=== PATIENT | female | born 1950 | race Caucasian/White ===

== ENCOUNTER 2016-09-23 14:46 | Emergency (ER) | payer MEDICARE, OTHER ==
[~2016-09-23] VITALS: Ht 160 cm; Wt 68.2 kg
[~2016-09-23 14:46] MED LIST: CYMBALTA30 MG PO; DAKIN'S 0.500 ML/1 B MC; DESYREL 50MG50 MG PO; DITROPAN XL10 MG PO; DOXYCYCLINE 10100 MG PO; FLEXERIL 1010 MG/TAB PO; LEVAQUIN 5500 MG/TA1 PO; LYRICA 100MG C100 M1 PO; LYRICA50 MG PO; MELOXICAM15 MG PO; NORCO 325 MG-51 TAB PO; OXYCONTIN 10MG10 MG PO; PREDNISONE20 MG PO; PRILOSEC 20MG20 MG PO; SAVELLA50 MG PO; TIZANIDINE4 MG PO; XANAX1 MG PO
[2016-09-23 14:48] VITALS: BP 147/71; TEMP 98.2
[2016-09-23] MEDS ORDERED: FLEXERIL 1010 MG/TAB PO ×2 (14:54→17:06)
[2016-09-23] MEDS ORDERED: NORCO 325 MG-51 TAB PO (17:06)
[2016-09-23 17:19] VITALS: PULSE 75
== END 2016-09-23 17:19 | disposition home or self-care (01) ==
LOC: COL.ER 14:46
DX: M54.6 Pain in thoracic spine (principal)
CPT/HCPCS: J1885; J2360

== ENCOUNTER 2016-10-28 20:18 | Emergency (ER) | payer MEDICARE, OTHER ==
[~2016-10-28] VITALS: Ht 160 cm; Wt 70.5 kg
[2016-10-28 20:21] VITALS: TEMP 99.1
[2016-10-28 21:23] LABS: BASO # 0.1 (0.0-0.2); BASO % 0.7 % (0.0-2.0); EOS % 0.1 % (0-4.0); GRAN % 67.9 % (42.2-75.2); LYMPH # 1.5 (1.2-3.4); LYMPH % 20.4 % (20.0-51.0); MEAN CELL VOLUME 91 fl (80.0-100.0); MEAN CORPUSCULAR HEMOGLOBIN 33 pg (27.0-31.0); MEAN CORPUSCULAR HGB CONC 36 g/dl (33.0-37.0); MONO # 0.8 (0.1-0.6); MONO % 10.6 % (1.7-9.3); PLATELET COUNT 251 K/mm3 (130-400); RED BLOOD COUNT 3.97 M/mm3 (4.10-5.30); REDCELL DISTRIBUTION WIDTH-CV 11.9 % (11.5-14.5); WHITE BLOOD COUNT 7.3 K/mm3 (4.8-10.8)
[2016-10-28 21:25] LABS: HEMATOCRIT 36.3 % (37.0-47.0)
[2016-10-28] MEDS ORDERED: XOPENEX 0.0.63 MG/3 IH (21:31)
[2016-10-28] MEDS ORDERED: PRILOSEC 20MG20 MG PO (21:32)
[2016-10-28] MEDS ORDERED: NORCO 325 MG-51 TAB PO (21:33)
[2016-10-28] MEDS ORDERED: SUDAFED 24-HOU240 MG PO (21:33)
[2016-10-28 21:36] LABS: CALCIUM 9.9 mg/dL (8.4-10.2); CREATININE, serum 0.8 mg/dL (0.52-1.25); POTASSIUM 3.7 mmol/L (3.4-5.0)
[2016-10-28 21:40] LABS: INFLUENZA B NEGATIVE
[2016-10-28 22:00] VITALS: BP 117/79
[2016-10-28 22:30] VITALS: PULSE 91
== END 2016-10-28 22:47 | disposition home or self-care (01) ==
LOC: COL.ER 20:18
PROVIDERS: Emergency Medicine
DX: J06.9 Acute upper respiratory infection, unspecified (principal); J30.9 Allergic rhinitis, unspecified; J90 Pleural effusion, not elsewhere classified
CPT/HCPCS: J1200; J7030

== ENCOUNTER 2017-02-02 15:03 | Emergency (ER) | payer MEDICARE, OTHER ==
[~2017-02-02] VITALS: Ht 312.4 cm; Wt 71.4 kg
[~2017-02-02 15:03] MED LIST changes: +SUDAFED 24-HOU240 MG PO; +XOPENEX 0.0.63 MG/3 IH
[2017-02-02 15:12] VITALS: BP 150/63; TEMP 98.4
[2017-02-02 17:24] VITALS: PULSE 72
== END 2017-02-02 17:25 | disposition home or self-care (01) ==
LOC: COL.ER 15:03
DX: M25.561 Pain in right knee (principal)

== ENCOUNTER 2017-07-17 12:33 | Emergency (ER) | payer MEDICARE, OTHER ==
[~2017-07-17] VITALS: Ht 160 cm; Wt 72.7 kg
[2017-07-17 12:37] VITALS: TEMP 99.6
[2017-07-17 14:44] LABS: COLLECTION METHOD CLEAN CATCH
[2017-07-17 14:58] LABS: MUCOUS Present /lpf; PH 8 (5-8); SQUAMOUS EPITHELIAL 0-2 /hpf; URINE APPEARANCE Clear; URINE BACTERIA Rare /hpf; URINE BILIRUBIN Negative (NEGATIVE); URINE BLOOD Negative (NEGATIVE); URINE COLOR Straw; URINE GLUCOSE Negative (NEGATIVE); URINE KETONE Trace (NEGATIVE); URINE LEUKOCYTE ESTERASE Trace (NEGATIVE); URINE NITRATE Negative (NEGATIVE); URINE PROTEIN(semi-quant) Negative (NEGATIVE); URINE RBC 0-2 /hpf; URINE UROBILINOGEN Negative (NEGATIVE)
[2017-07-17 14:58] LABS: BASO # 0.1 (0.0-0.2); BASO % 0.7 % (0.0-2.0); EOS % 0.4 % (0-4.0); GRAN % 55.8 % (42.2-75.2); HEMATOCRIT 40.6 % (37.0-47.0); HEMOGLOBIN 14.1 g/dl (12.5-16.0); LYMPH # 2.6 (1.2-3.4); LYMPH % 36.6 % (20.0-51.0); MEAN CELL VOLUME 94 fl (80.0-100.0); MEAN CORPUSCULAR HEMOGLOBIN 33 pg (27.0-31.0); MEAN CORPUSCULAR HGB CONC 35 g/dl (33.0-37.0); MEAN PLATELET VOLUME 9.4 fl (7.4-10.4); MONO # 0.5 (0.1-0.6); MONO % 6.4 % (1.7-9.3); PLATELET COUNT 283 K/mm3 (130-400); RED BLOOD COUNT 4.31 M/mm3 (4.10-5.30); REDCELL DISTRIBUTION WIDTH-CV 11.4 % (11.5-14.5)
[2017-07-17 15:10] LABS: ALANINE AMINOTRANSFERASE 27 U/L (9-52); ALBUMIN 4.5 gm/dL (3.5-5.0); ALKALINE PHOSPHATASE 103 U/L (50-136); ANION GAP 12 mmol/L (7-16); AST,SGOT 23 U/L (15-37); BILIRUBIN,TOTAL 0.8 mg/dL (0.0-1.0); BLOOD UREA NITROGEN 13 mg/dL (7-17); C-REACTIVE PROTEIN < 0.5 mg/dL (0.0-0.9); CALCIUM 10.2 mg/dL (8.4-10.2); CARBON DIOXIDE 24 mmol/L (22-30); CHLORIDE 99 mmol/L (98-107); CREATININE, serum 0.92 mg/dL (0.52-1.25); GLUCOSE 103 mg/dL (74-106); POTASSIUM 3.4 mmol/L (3.4-5.0); SODIUM 134 mmol/L (137-145); TOTAL PROTEIN 7.5 gm/dL (6.4-8.2)
[2017-07-17 15:17] LABS: INFLUENZA A NEGATIVE; INFLUENZA B NEGATIVE
[2017-07-17] MEDS ORDERED: LEVAQUIN 5500 MG/TA1 PO (15:35)
[2017-07-17] MEDS ORDERED: ZITHROMAX Z PA250 MG PO (16:04)
[2017-07-17 16:22] VITALS: BP 141/81; PULSE 96
== END 2017-07-17 16:21 | disposition home or self-care (01) ==
LOC: COL.ER 12:33
PROVIDERS: Family Medicine
DX: R06.02 Shortness of breath (principal); K21.9 Gastro-esophageal reflux disease without esophagitis
CPT/HCPCS: J2060; J7030

== ENCOUNTER → 2018-05-12 | Outpatient (CLI) | payer MEDICARE, OTHER, BC ==
[~2018-05-12] MED LIST changes: +ZITHROMAX Z PA250 MG PO
== END ==
LOC: MHCPAIN 14:42
DX: G89.29 Other chronic pain (principal); M54.12 Radiculopathy, cervical region; M47.812 Spondylosis without myelopathy or radiculopathy, cervical region; R51 Headache
CPT/HCPCS: G0463

== ENCOUNTER 2018-07-09 14:15 | Outpatient (RCR) | payer MEDICARE, OTHER | END 2018-07-09 15:06 | disposition home or self-care (01) | LOC: WSC 14:15 | DX: M47.22 Other spondylosis with radiculopathy, cervical region (principal); M50.322 Other cervical disc degeneration at C5-C6 level; R51 Headache; G89.29 Other chronic pain; Z79.82 Long term (current) use of aspirin | CPT/HCPCS: G8981-GP; G8982-GP ==

== ENCOUNTER → 2018-07-21 | Outpatient (CLI) | payer MEDICARE, OTHER | LOC: MHCPAIN 12:51 | DX: G89.29 Other chronic pain (principal); R51 Headache; M47.812 Spondylosis without myelopathy or radiculopathy, cervical region | CPT/HCPCS: G0463 ==